=== PATIENT | male | born 1975 | race Caucasian/White ===

== ENCOUNTER 2017-04-29 12:39 | Emergency (ER) | payer OTHER ==
[~2017-04-29] VITALS: Ht 175.3 cm; Wt 101.0 kg
[2017-04-29 12:46] VITALS: TEMP 37; Ht 175.3 cm; Wt 101.0 kg
[2017-04-29] MEDS ORDERED: XYLOCAINE 1%/SOD BICARB 20 ML VIAL INFIL ONE (13:15)
[2017-04-29] MEDS ORDERED: SERT50TA PO (13:56)
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
[2017-04-29] MEDS ORDERED: OXYC1TAB3 PO ×2 (15:27→20:41)
[2017-04-29] MEDS ORDERED: TRAMADOL HCL 50 MG TAB PO STA (16:24)
[2017-04-29 17:40] VITALS: BP 136/87; PULSE 91; O2SAT 94
[2017-04-29] MEDS ORDERED: SERT-234 PO (20:41)
== END 2017-04-29 18:10 | disposition home or self-care (01) ==
LOC: C.EDD 12:43
DX: F10.929 Alcohol use, unspecified with intoxication, unspecified (principal); S06.0X0A Concussion without loss of consciousness, initial encounter; S92.101A Unspecified fracture of right talus, initial encounter for closed fracture; S61.412A Laceration without foreign body of left hand, initial encounter; S00.81XA Abrasion of other part of head, initial encounter; V43.52XA Car driver injured in collision with other type car in traffic accident, initial encounter; F17.200 Nicotine dependence, unspecified, uncomplicated; R40.2412 Glasgow coma scale score 13-15, at arrival to emergency department

== ENCOUNTER 2017-04-29 19:11 | Emergency (ER) | payer OTHER ==
[~2017-04-29] VITALS: Ht 175.3 cm; Wt 91.0 kg
[~2017-04-29 19:11] MED LIST changes: -SERT-234 PO
[2017-04-29 19:12] VITALS: Ht 175.3 cm; Wt 91.0 kg
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
[2017-04-29 19:50] LABS: BASO % 0.2 %; BASO ABS # 0.02 K/uL (0-0.2); COMPLETE YES; EOS % 0.6 %; HEMATOCRIT 45.4 % (42-52); IG% 0.3 %; LYMPH % 23.9 %; LYMPH ABS # 2.63 K/uL (1.2-3.4); MEAN CELL VOLUME 86.8 fL (80-100); MEAN CORPUSCULAR HEMOGLOBIN 30.8 pg (25-34); MEAN CORPUSCULAR HGB CONC 35.5 g/dl (32-36); MEAN PLATELET VOLUME 8.8 fL (7.4-10.4); MONO % 9.8 %; NEUT % 65.2 %; PLATELET COUNT 187 K/uL (130-400); RED BLOOD COUNT 5.23 M/uL (4.7-6.1); WHITE BLOOD COUNT 11.02 K/uL (4.8-10.8)
[2017-04-29] MEDS ORDERED: LORAZEPAM 0.5 MG TAB SL STA (19:55)
[2017-04-29 20:09] LABS: CREATININE 1.02 mg/dl (0.60-1.40)
[2017-04-29 20:10] LABS: BUN/CREATININE RATIO 11.8 (10-20); CALCIUM 8.5 mg/dl (8.5-10.1); POTASSIUM 3.6 mmol/L (3.5-5.1)
[2017-04-29 20:20] LABS: THYROID STIMULATING HORMONE 0.527 uIu/ml (0.300-4.500)
[2017-04-29] MEDS ORDERED: OXYC1TAB3 PO (20:41)
[2017-04-29] MEDS ORDERED: SERT-234 PO (20:41)
[2017-04-29] MEDS ORDERED: ACETAMINOPHEN 500 MG TAB PO STA (21:56)
[2017-04-29 23:15] LABS: URINE APPEARANCE CLEAR (CLEAR); URINE BILIRUBIN NEG (NEG); URINE COLOR DK YELLOW; URINE NITRITE NEG (NEG); URINE SPECIFIC GRAVITY 1.025 (1.000-1.030); UROBILINOGEN NEG (NEG)
[2017-04-29 23:30] LABS: MANUAL MICROSCOPIC REQUIRED? NO; REVIEW REQ? NO
[2017-04-29 23:41] LABS: BENZODIAZEPINE, URINE NEG (NEG); COCAINE,URINE NEG (NEG); PHENCYCLIDINE, URINE NEG (NEG)
[2017-04-30] MEDS ORDERED: LORAZEPAM 1 MG TAB SL PRN (01:00)
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
[2017-04-30 09:00] VITALS: BP 123/77; PULSE 68; TEMP 36.6; O2SAT 99
== END 2017-04-30 09:00 ==
LOC: C.EDB 19:11 → C.EDA 04-30 09:00
DX: F32.9 Major depressive disorder, single episode, unspecified (principal); R45.851 Suicidal ideations; F10.229 Alcohol dependence with intoxication, unspecified; S92.101A Unspecified fracture of right talus, initial encounter for closed fracture; V43.02XA Car driver injured in collision with other type car in nontraffic accident, initial encounter; Z87.891 Personal history of nicotine dependence

== ENCOUNTER → 2017-04-29 | Outpatient (CLI) | payer OTHER ==
[~2017-04-29] MED LIST: OXYC1TAB3 PO; SERT-234 PO; SERT50TA PO
== END | disposition home or self-care (01) ==
LOC: C.LAB 13:22
DX: Z02.83 Encounter for blood-alcohol and blood-drug test (principal)

== ENCOUNTER → 2017-06-14 | Outpatient (CLI) | payer OTHER ==
[~2017-06-14] MED LIST changes: +SERT-234 PO; -SERT50TA PO
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
== END | disposition home or self-care (01) ==
LOC: C.RDSM 17:55
PROVIDERS: ATTEND Family Medicine
DX: R52 Pain, unspecified (principal)

== ENCOUNTER → 2017-07-27 | Outpatient (CLI) | payer OTHER ==
--- NOTE | 2017-07-27 09:57 | DIAGNOSTIC IMAGING REPORT ---
R ANKLE MIN 3 VIEWS CLINICAL HISTORY: SPRAIN OF TIBIOFIBULAR LIGAMENT OF RIGHT ANKLE COMPARISON: 06/14/2017 DISCUSSION: No acute fractures or dislocations are visualized. Corticated ossicles are again visualized adjacent to the posterior processes the talus. There are curvilinear calcifications, abutting the medial malleolus. These also remain stable. There are stable tiny corticated ossicles adjacent to the medial malleolar tip and medial aspect of the talus. There is minor soft tissue swelling IMPRESSION: 1. Old posttraumatic changes 2. No acute fractures Electronically signed by: Zachary Gay M.D. 07/27/2017 9:56 AM Dictated Date/Time: 07/27/2017 9:55 AM
== END | disposition home or self-care (01) ==
LOC: C.RDSM 09:44
PROVIDERS: ATTEND Physician Assistant
DX: S93.431D Sprain of tibiofibular ligament of right ankle, subsequent encounter (principal); X58.XXXD Exposure to other specified factors, subsequent encounter